=== PATIENT | female | born 1955 | race American Indian/Alaskan Native ===

== ENCOUNTER 2017-04-27 20:47 | Emergency (ER) | payer MEDICARE ==
--- NOTE | 2017-04-27 20:59 | Emergency Department Report ---
ED Neuro Deficit HPI - General Stated Complaint: POSS STROKE Time Seen by Provider: 04/27/17 20:54 Source: patient, family, EMS Mode of arrival: Stretcher Limitations: No Limitations - History of Present Illness Initial Comments: Patient is 61 years old female brought into the ER as a code stroke, family stated that symptoms started at 5:30 PM when patient went to the bathroom, family stated that patient with a right facial droop and right upper and lower extremity weakness and incontinence. Patient had history of hypertension and left breast cancer and previous history of CVA 13 years ago with no residual. EMS stated that the patient's symptoms improving since they saw her. -: Sudden Location: right face, right arm, right leg Presenting Symptoms: Present: Weak/Paralyzed One Side, Facial Droop/Numbness History of same: Yes Place: home Severity: moderate Associated Symptoms: denies other symptoms - Related Data Allergies/Adverse Reactions: Allergies Allergy/AdvReac Type Severity Reaction Status Date / Time No Known Allergies Allergy Unverified 10/06/13 12:27 ED Review of Systems ROS: Stated complaint: POSS STROKE Other details as noted in HPI Comment: All other systems reviewed and negative Constitutional: denies: chills, fever Respiratory: denies: cough, shortness of breath, SOB with exertion Cardiovascular: denies: chest pain, palpitations, dyspnea on exertion Gastrointestinal: denies: abdominal pain, nausea, vomiting Skin: denies: rash Neurological: weakness, numbness. denies: headache ED Past Medical Hx - Past Medical History Hx Hypertension: Yes Hx CVA: Yes ED Neuro Physical Exam - General Limitations: No Limitations General appearance: alert, in no apparent distress Suspected Stroke: Yes - Eye Eye exam: Present: normal appearance, PERRL Pupils: Present: normal accommodation - ENT ENT exam: Present: normal exam, normal orophraynx, mucous membranes moist - Neck Neck exam: Present: normal inspection, full ROM. Absent: tenderness, meningismus, lymphadenopathy, thyromegaly - Respiratory Respiratory exam: Present: normal lung sounds bilaterally. Absent: respiratory distress, wheezes, rales, rhonchi, stridor, chest wall tenderness, accessory muscle use, decreased breath sounds, prolonged expiratory - Cardiovascular Cardiovascular Exam: Present: regular rate, normal rhythm, normal heart sounds - GI/Abdominal GI/Abdominal exam: Present: soft, normal bowel sounds. Absent: distended, tenderness, guarding, rebound, rigid, organomegaly, mass, bruit, pulsatile mass , hernia - Extremities Exam Extremities exam: Present: normal inspection, full ROM, normal capillary refill - Back Exam Back exam: Present: normal inspection, full ROM. Absent: CVA tenderness (R), CVA tenderness (L), muscle spasm, paraspinal tenderness - Neurological Exam Neurological exam: Present: alert, oriented X3 - NIHSS Assessment Interval: Baseline 1a. Level of Consciousness: alert 1b. LOC Questions: answers correctly 1c. LOC Commands: performs tasks correctly 2. Best Gaze: normal 3. Visual: no visual loss 4. Facial Palsy: complete paralysis 5b. Motor Arm Right: drift 5a. Motor Arm Left: no drift 6a. Motor Leg Left: no drift 6b. Motor Leg Right: drift 7. Limb Ataxia: absent 8. Sensory: mild/moderate sensory loss 9. Best Language: no aphasia 10. Dysarthria: normal 11. Extinction/Inattention: no abnormality Total Score: 6 Stroke Severity: Moderate Stroke - Psychiatric Psychiatric exam: Present: normal affect - Skin Skin exam: Present: warm, intact, normal color ED Course Vital Signs 04/27/17 04/27/17 20:49 21:18 Temperature 98.5 F Pulse Rate 74 Respiratory 20 20 Rate Blood Pressure 155/64 [Right] O2 Sat by Pulse 95 95 Oximetry - Reevaluation(s) Reevaluation #1: 04/27/17 22:06 I reexamined the patient, patient is alert oriented x3, in no acute distress. I informed the patient and her daughter about the CT brain results and our current diagnosis and the need for the transfer to [facility]. - Lab Data Result diagrams: 04/27/17 20:50 04/27/17 20:50 Lab Results 04/27/17 04/27/17 04/27/17 Range/Units 20:50 20:50 20:50 WBC 12.5 H (4.5-11.0) K/mm3 RBC 5.04 H (3.65-5.03) M/mm3 Hgb 14.5 H (10.1-14.3) gm/dl Hct 45.2 H (30.3-42.9) % MCV 90 (79-97) fl MCH 29 (28-32) pg MCHC 32 (30-34) % RDW 14.9 (13.2-15.2) % Plt Count 180 (140-440) K/mm3 Seg Neutrophils % Stonemason PT 12.5 (12.2-14.9) Sec. INR 0.89 (0.87-1.13) APTT 32.0 (24.2-36.6) Sec. Thrombin Time (15.1-19.6) Sec. Sodium 135 L (137-145) mmol/L Potassium 4.3 (3.6-5.0) mmol/L Chloride 93.2 L (98-107) mmol/L Carbon Dioxide 25 (22-30) mmol/L Anion Gap 21 mmol/L BUN 13 (7-17) mg/dL Creatinine 0.8 (0.7-1.2) mg/dL Estimated GFR > 60 ml/min BUN/Creatinine Ratio 16 % Glucose 188 H (65-100) mg/dL POC Glucose (70-105) Calcium 9.2 (8.4-10.2) mg/dL Troponin T < 0.010 (0.00-0.029) ng/mL 04/27/17 04/27/17 Range/Units 20:50 21:45 WBC (4.5-11.0) K/mm3 RBC (3.65-5.03) M/mm3 Hgb (10.1-14.3) gm/dl Hct (30.3-42.9) % MCV (79-97) fl MCH (28-32) pg MCHC (30-34) % RDW (13.2-15.2) % Plt Count (140-440) K/mm3 Seg Neutrophils % PT (12.2-14.9) Sec. INR (0.87-1.13) APTT (24.2-36.6) Sec. Thrombin Time 16.1 (15.1-19.6) Sec. Sodium (137-145) mmol/L Potassium (3.6-5.0) mmol/L Chloride (98-107) mmol/L Carbon Dioxide (22-30) mmol/L Anion Gap mmol/L BUN (7-17) mg/dL Creatinine (0.7-1.2) mg/dL Estimated GFR ml/min BUN/Creatinine Ratio % Glucose (65-100) mg/dL POC Glucose 179 H (70-105) Calcium (8.4-10.2) mg/dL Troponin T (0.00-0.029) ng/mL - EKG Data -: EKG Interpreted by Ny EKG shows normal: sinus rhythm Rate: normal Interpretation: no acute changes - Radiology Data Radiology results: report reviewed Referring Physician: TORSTEN NAVA Patient Name: ROLDAN JUAREZ Date of : 1955 Sex: Female Report Date: 2017-04-27 Report Status: Finalized Findings [facility] [address] [place] [address] Cat Scan Report Signed Patient: ROLDAN JUAREZ MR#: [id number] : 1955 Acct:[id number] Age/Sex: 61 / F ADM Date: 04/27/17 Loc: ED Attending Dr: Ordering Physician: TORSTEN NAVA Date of Service: 04/27/17 Procedure(s): CT head/brain wo con Accession Number(s): [id number] cc: TORSTEN NAVA FINAL REPORT PROCEDURE: CT HEAD/BRAIN WO CON TECHNIQUE: Computerized tomography of the head was performed without contrast material. HISTORY: neuro deficits lt; 6hrs or sx present upon awakening COMPARISON: No prior studies are available for comparison. FINDINGS: Skull and scalp: Normal. Paranasal sinuses: Normal. Ventricles and subarachnoid spaces: Normal. Cerebrum: There is diminished density of the right frontal temporal region and left parietal-occipital region with effacement of the sulci. There is volume loss with encephalomalacia of the left occipital lobe. There is increased density with hemorrhage of the left thalamus extending to the 3rd ventricle and the lateral ventricles, series 2 images 17 through 25. Nonspecific focal increased density in the right periventricular region with possible additional hemorrhagic focus versus mass, series 2, image 30. Cerebellum and brainstem: There is 2.2 cm increased density mass with surrounding edema of the left cerebellum. Vasculature: Normal. Comments: None. IMPRESSION: Left thalamic hemorrhage with intraventricular extension. Edema of the right frontal temporal, left parietal occipital, and left cerebellar regions suggesting mass involvement with surrounding edema versus infarcts. Contrast-enhanced exam recommended for further evaluation. Results discussed with Dr. Nava 9:30 p.m. Transcribed By: OLAMIDE Dictated By: SAM HANNON MD Electronically Authenticated By: SAM HANNON MD Signed Date/Time: 04/27/171731 DD/ 31 TD/TT: 04/27/171731 - Medical Decision Making Discussed with Dr. Bills, neurosurgeon from [facility], I presented the patient to him, he agreed to transfer the patient to [facility]. Discussed with Dr. De La Garza from [facility], I presented the patient to him he agreed to transfer the patient to [facility] Critical Care Time: Yes Critical care time in (mins) excluding proc time.: 45 Critical care attestation.: If time is entered above; I have spent that time in minutes in the direct care of this critically ill patient, excluding procedure time. ED Disposition Clinical Impression: Stroke due to intracerebral hemorrhage Disposition: DC/TX-70 ANOTHER TYPE HLTHCARE Is pt being admited?: No Condition: Stable Referrals: ODILIA WARD DO [Primary Care Provider] - 3-5 Days
[2017-04-27 21:01] LABS: Hematocrit 45.2 % (30.3-42.9); Hemoglobin 14.5 gm/dl (10.1-14.3); Mean Corpuscular HGB Conc 32 % (30-34); Mean Corpuscular Hemoglobin 29 pg (28-32); Mean Corpuscular Volume 90 fl (79-97); Platelet Count 180 K/mm3 (140-440); Red Blood Count 5.04 M/mm3 (3.65-5.03); Red Cell Distribution Width 14.9 % (13.2-15.2)
[2017-04-27 21:12] LABS: BUN/Creatinine Ratio 16; Blood Urea Nitrogen 13 mg/dL (7-17); Calcium 9.2 mg/dL (8.4-10.2); Hemolysis Index 145; INR 0.89 (0.87-1.13)
--- NOTE | 2017-04-27 21:37 | Cat Scan Report ---
FINAL REPORT PROCEDURE: CT HEAD/BRAIN WO CON TECHNIQUE: Computerized tomography of the head was performed without contrast material. HISTORY: neuro deficits < 6hrs or sx present upon awakening COMPARISON: No prior studies are available for comparison. FINDINGS: Skull and scalp: Normal. Paranasal sinuses: Normal. Ventricles and subarachnoid spaces: Normal. Cerebrum: There is diminished density of the right frontal temporal region and left parietal-occipital region with effacement of the sulci. There is volume loss with encephalomalacia of the left occipital lobe. There is increased density with hemorrhage of the left thalamus extending to the 3rd ventricle and the lateral ventricles, series 2 images 17 through 25. Nonspecific focal increased density in the right periventricular region with possible additional hemorrhagic focus versus mass, series 2, image 30. Cerebellum and brainstem: There is 2.2 cm increased density mass with surrounding edema of the left cerebellum. Vasculature: Normal. Comments: None. IMPRESSION: Left thalamic hemorrhage with intraventricular extension. Edema of the right frontal temporal, left parietal occipital, and left cerebellar regions suggesting mass involvement with surrounding edema versus infarcts. Contrast-enhanced exam recommended for further evaluation. Results discussed with Dr. Granados 9:30 p.m.
[2017-04-27 22:11] LABS: Band Neutrophils # (Manual) 0.1 K/mm3; Eosinophils % (Manual) 0 % (0.0-4.3); Platelet Estimate Consistent w Auto; RBC Morphology Normal; Total Cells Counted 100
[2017-04-27 22:50] VITALS: BP 154/92
--- NOTE | 2017-04-27 23:52 | XRay Report ---
FINAL REPORT PROCEDURE: XR CHEST 1V AP TECHNIQUE: Chest radiograph anteroposterior view. CPT 65368 HISTORY: neuro deficit COMPARISON: No prior studies are available for comparison. FINDINGS: Heart: Heart size is slightly pronounced. Mediastinum/Vessels: Normal. Lungs/Pleural space: Mild atelectasis left lower lung. No effusion or pneumothorax.. Bony thorax: No acute osseous abnormality. Life support devices: None. IMPRESSION: Mild atelectasis left lower lung.
== END 2017-04-27 23:50 | disposition other institution (70) ==
LOC: ED 20:47
DX: I62.9 Nontraumatic intracranial hemorrhage, unspecified (principal)
CPT/HCPCS: 36415; 70450; 71045; 80048; 82962; 84484; 85007; 85025; 85610; 85670; 85730; 93005; 93010

== ENCOUNTER 2017-06-11 13:33 | Emergency (ER) | payer MEDICARE ==
[2017-06-11 14:03] VITALS: BP 137/62
--- NOTE | 2017-06-11 16:20 | Emergency Department Report ---
Blank Doc - Documentation Documentation: Patient is a 61-year-old asthmatic female history of past stroke who is presenting with right lower extremity swelling. Patient has had swelling increased for the past week. Patient denies any shortness of breath chest pain at this time. Patient's daughter states that she does hang this leg off of the bed often times but her nurse that takes care of her was worried about DVT. We had a long discussion regarding how the vascular system wor. Patient most likely has a dependent edema because of immobility and positioning while she sleeps however I do feel as though she is at increased risk for DVT because of her mobility as well. Patient will undergo ultrasound of the lower extremity.
--- NOTE | 2017-06-11 17:27 | Emergency Department Report ---
ED Lower Extremity HPI - General Chief Complaint: Extremity Problem,Nontraumatic Stated Complaint: POSS BLOOD CLOT LEG Time Seen by Provider: 06/11/17 15:36 Source: patient Mode of arrival: Wheelchair Limitations: No Limitations - History of Present Illness Initial Comments: This is a 61-year-old female nontoxic, well nourished in appearance, no acute signs of distress presents to the ED with c/o of right lower leg edema. Patient denies any trauma. Patient stated she lays in bed most of the day with the foot dangling to the floor. Patient denies any calf pain, leg pain, fever, chills, headache, nausea, vomiting, chest pain, shortness of breathe, back pain, abdominal pain. Patient denies any numbness or tingling. Patient denies any allergies. PMH includes CVA and HTN. MD Complaint: leg injury Injury: Leg: Right Severity: mild Severity scale (0 -10): 8 Improves With: nothing Worsens With: nothing Associated Symptoms: swelling, able to partially bear weight, ambulatory. denies: snap/pop sensation, numbness, tingling, unable to bear weight - Related Data Previous Rx's Medication Instructions Recorded Last Taken Type Acetaminophen [Tylenol Arthritis] 650 mg PO Q8H PRN #30 tablet.er 06/11/17 Unknown Rx Allergies Allergy/AdvReac Type Severity Reaction Status Date / Time No Known Allergies Allergy Unverified 10/06/13 12:27 ED Review of Systems ROS: Stated complaint: POSS BLOOD CLOT LEG Other details as noted in HPI Constitutional: denies: chills, fever Eyes: denies: eye pain, eye discharge, vision change ENT: denies: ear pain, throat pain Respiratory: denies: cough, shortness of breath, wheezing Cardiovascular: denies: chest pain, palpitations Endocrine: no symptoms reported Gastrointestinal: denies: abdominal pain, nausea, diarrhea Genitourinary: denies: urgency, dysuria, discharge Musculoskeletal: denies: back pain, joint swelling, arthralgia Skin: denies: rash, lesions Neurological: denies: headache, weakness, paresthesias Psychiatric: denies: anxiety, depression Hematological/Lymphatic: denies: easy bleeding, easy bruising ED Past Medical Hx - Past Medical History Hx Hypertension: Yes Hx CVA: Yes - Surgical History Additional Surgical History: Mastectomy left breast - Social History Smoking Status: Former Smoker Substance Use Type: None - Medications Home Medications: Home Medications Medication Instructions Recorded Confirmed Last Taken Type Acetaminophen [Tylenol Arthritis] 650 mg PO Q8H PRN #30 tablet.er 06/11/17 Unknown Rx ED Physical Exam - General Limitations: No Limitations General appearance: alert, in no apparent distress - Head Head exam: Present: atraumatic, normocephalic - Eye Eye exam: Present: normal appearance - ENT ENT exam: Present: mucous membranes moist - Neck Neck exam: Present: normal inspection, full ROM. Absent: tenderness, meningismus, lymphadenopathy, thyromegaly - Respiratory Respiratory exam: Present: normal lung sounds bilaterally. Absent: respiratory distress, wheezes, rales, rhonchi, stridor, chest wall tenderness, accessory muscle use, decreased breath sounds, prolonged expiratory - Cardiovascular Cardiovascular Exam: Present: regular rate, normal rhythm, normal heart sounds. Absent: irregular rhythm, systolic murmur, diastolic murmur, rubs, gallop - GI/Abdominal GI/Abdominal exam: Present: soft, normal bowel sounds. Absent: distended, tenderness, guarding, rebound, rigid, diminished bowel sounds - Rectal Rectal exam: Present: deferred - Extremities Exam Extremities exam: Present: normal inspection, full ROM, normal capillary refill , pedal edema. Absent: tenderness, joint swelling, calf tenderness - Expanded Lower Extremity Exam Right Hip exam: Present: normal inspection, full ROM Upper Leg exam: Present: normal inspection, full ROM Knee exam: Present: normal inspection, full ROM Lower Leg exam: Present: normal inspection, full ROM, swelling (2+). Absent: tenderness, abrasion, laceration, ecchymosis, deformity, crepidus, dislocation, erythema, palpable cord, Crystal's sign Ankle exam: Present: normal inspection, full ROM, swelling (2+). Absent: tenderness, abrasion, laceration, ecchymosis, crepidus, dislocation, erythema, anterior draw sign Foot/Toe exam: Present: normal inspection, full ROM, swelling (2+). Absent: tenderness, abrasion, laceration, ecchymosis, deformity, crepidus, dislocation, erythema, amputation, puncture wound, foreign body, calcaneal tenderness, tenderness at base of 5th metatarsal, nail avulsion, subungual hematoma Neuro vascular tendon exam: Present: no vascular compromise. Absent: abnormal cap refill, motor deficit, sensory deficit, tendon deficit, extremity cold to touch, pallor, abnormal 2-point discrimination, decreased fine/light touch, foot drop, peroneal nerve deficit, significant pain with passive ROM of distal joint Gait: Positive: observed and limited by pain - Back Exam Back exam: Present: normal inspection, full ROM. Absent: tenderness, CVA tenderness (R), CVA tenderness (L), muscle spasm, paraspinal tenderness, vertebral tenderness, rash noted - Neurological Exam Neurological exam: Present: alert, oriented X3, CN II-XII intact, normal gait, reflexes normal - Psychiatric Psychiatric exam: Present: normal affect, normal mood - Skin Skin exam: Present: warm, dry, intact, normal color. Absent: rash ED Course Vital Signs 06/11/17 13:58 Temperature 98.0 F Pulse Rate 77 Respiratory 16 Rate Blood Pressure 137/62 O2 Sat by Pulse 100 Oximetry - Reevaluation(s) Reevaluation #1: 06/11/17 17:31 Patient is speaking in full sentences with no signs of distress noted. - Consultations Consultation #1: 06/11/17 17:32 Patient has been consulted with Dr. Wells about patient history, physical exam , and labs and examined and screened patient and agrees to ED plan of care and stated for patient to get discharge with follow-up. ED Lower Extremity MDM - Medical Decision Making This is a 61-year-old female that presents with lower eternity edema. Patient is stable and was examined by me and Dr. Wells. Doppler US negative for DVT/ SVT. There is no calf tednerness or redness. NO signs of cellulitis. Not warm to touch. Patient was educated to have the leg above heart level most of the day as patient keeps her lower extremity of the right dangling on the floor for more then 15 hours a day. Patient was also instructed and refereed to Follow-up with a primary care/company laundry worker doctor in 24 hours or if symptoms worsen and continue return to emergency room as soon as possible. At time of discharge, the patient does not seem toxic or ill in appearance. No acute signs of distress noted. Patient agrees to discharge treatment plan of care. No further questions noted by the patient. Critical care attestation.: If time is entered above; I have spent that time in minutes in the direct care of this critically ill patient, excluding procedure time. ED Disposition Clinical Impression: Edema of right lower extremity Disposition: DC- TO HOME OR SELFCARE Is pt being admited?: No Does the pt Need Aspirin: No Condition: Stable Instructions: Leg Edema (ED) Additional Instructions: Follow-up with a primary care/company laundry worker doctor in 24 hours or if symptoms worsen and continue return to emergency room as soon as possible. Prescriptions: Acetaminophen [Tylenol Arthritis] 650 mg PO Q8H PRN #30 tablet.er PRN Reason: Pain Referrals: [facility] [Outside] - 3-5 Days [facility] [Outside] - 3-5 Days PRIMARY CARE, [Primary Care Provider] - 24 Hours NKECHI TERRELL MD [Staff Physician] - 24 Hours ISABELL KAM MD [Staff Physician] - 24 Hours YANI KAM MD [Staff Physician] - 24 Hours
--- NOTE | 2017-06-12 09:55 | Vascular Lab Report ---
Right Lower Extremity Venous Duplex Study: Reason for Exam: Swelling of the right lower extremity. Comments on the Right: All veins visualized are freely compressible without evidence of internal echogenicity. Flow is spontaneous and phasic throughout. No evidence of acute or chronic thrombus is seen in any of the vessels visualized. Comments on the Left: A limited duplex study was done of the proximal veins of the left lower extremity. All veins visualized are freely compressible without evidence of internal echogenicity. Flow is spontaneous and phasic throughout. No evidence of acute or chronic thrombus is seen in any of the vessels visualized. Impression: No evidence of acute or chronic deep venous thrombosis in the right lower extremity.
== END 2017-06-11 17:44 | disposition home or self-care (01) ==
LOC: ED 13:33
DX: R60.0 Localized edema (principal); I10 Essential (primary) hypertension; Z90.12 Acquired absence of left breast and nipple; Z87.891 Personal history of nicotine dependence
CPT/HCPCS: 99282

== ENCOUNTER 2017-07-30 08:58 | Outpatient (CLI) | payer MEDICARE ==
[2017-07-30] MEDS ORDERED: XYLOCAINE TOPICAL 4% TP ONE ×2 (09:30→09:44)
== END 2017-07-30 08:59 | disposition home or self-care (01) ==
LOC: WOUND 08:58
PROVIDERS: ATTEND Nurse Practitioner
DX: I70.235 Atherosclerosis of native arteries of right leg with ulceration of other part of foot (principal); E11.622 Type 2 diabetes mellitus with other skin ulcer; L97.311 Non-pressure chronic ulcer of right ankle limited to breakdown of skin; L97.321 Non-pressure chronic ulcer of left ankle limited to breakdown of skin; L97.211 Non-pressure chronic ulcer of right calf limited to breakdown of skin; E11.621 Type 2 diabetes mellitus with foot ulcer; L97.412 Non-pressure chronic ulcer of right heel and midfoot with fat layer exposed; I10 Essential (primary) hypertension; Z86.73 Personal history of transient ischemic attack (TIA), and cerebral infarction without residual deficits; Z85.3 Personal history of malignant neoplasm of breast; Z85.841 Personal history of malignant neoplasm of brain; Z87.891 Personal history of nicotine dependence
CPT/HCPCS: 11042; 11045; 87075; 87076; 87116; 87186; G0463

== ENCOUNTER 2017-07-30 11:14 | Outpatient (CLI) | payer MEDICARE ==
--- NOTE | 2017-08-05 12:11 | Vascular Lab Report ---
LOWER EXTREMITY ARTERIAL DUPLEX: REASON FOR EXAM: Arterial disease with ulceration. COMMENTS ON THE RIGHT: Monophasic waveforms are seen proximally. Monophasic waveforms are seen distally. Findings are consistent with aortoiliac inflow disease. Scattered plaque is seen throughout. Findings are consistent with abnormal perfusion. Findings are not consistent with the ability to heal distal wounds. COMMENTS ON THE LEFT: Monophasic waveforms are seen proximally. Monophasic waveforms are seen distally. Findings are consistent with severe aortoiliac inflow disease. Scattered plaque is seen throughout. Findings are consistent with abnormal perfusion. Findings are not consistent with the ability to heal distal wounds. IMPRESSION: RIGHT: Severe aortoiliac inflow disease. Inadequate flow distally. Recommend further evaluation. LEFT:Severe aortoiliac inflow disease. Recommend further evaluation.
--- NOTE | 2017-08-05 12:14 | Vascular Lab Report ---
LOWER EXTREMITY ARTERIAL PHYSIOLOGIC STUDY: REASON FOR EXAM: Peripheral arterial disease with ulceration. COMMENTS ON THE RIGHT: Ankle brachial index is 0.55. This value is severely abnormal. Pulse volume recording at the level of the ankle is moderately abnormal. Exercise testing was not done. COMMENTS ON THE LEFT: Ankle brachial index is 0.50. This value is severely abnormal. Pulse volume recording at the level of the ankle is moderately abnormal. Exercise testing was not done. IMPRESSION: RIGHT: Abnormal ABIs. Recommend further evaluation. LEFT:Abnormal ABIs. Recommend further evaluation,
== END 2017-07-30 11:15 | disposition home or self-care (01) ==
LOC: VAS 11:14
PROVIDERS: ATTEND Nurse Practitioner
DX: E11.621 Type 2 diabetes mellitus with foot ulcer (principal); I70.235 Atherosclerosis of native arteries of right leg with ulceration of other part of foot; I10 Essential (primary) hypertension; Z87.891 Personal history of nicotine dependence
CPT/HCPCS: 93922; 93925